=== PATIENT | female | born 1970 | race American Indian/Alaskan Native ===

== ENCOUNTER 2016-10-09 12:55 | Emergency (ER) | payer BC, MEDICARE ==
[2016-10-09 13:10] VITALS: BP 135/87; TEMP 98.6
--- NOTE | 2016-10-09 13:36 | ED PDOC ---
Arrival/HPI - General Chief Complaint: Abnormal Skin Integrity Time Seen by Provider: 10/09/16 13:33 Historian: Patient - History of Present Illness Narrative History of Present Illness (Text): 10/09/16 13:33 45 y/o female, post menopausal, nkda, c/o bilateral itching sore rash x 3 months with no change in soap/clothing/detergent. Pt. admits that she sweats a lot, no fever or chills, no night sweat, no breast pain or swelling, no chest pain or shortness of breath, no other medical or psychological complaints. Past Medical History - Provider Review Nursing Documentation Reviewed: Yes - Infectious Disease Hx of Infectious Diseases: None - Reproductive Menopause: Yes - Endocrine/Metabolic Hx Diabetes Mellitus Type 2: Yes - Psychiatric Hx Bipolar Disorder: Yes Hx Substance Use: No - Surgical History Hx Cholecystectomy: Yes Family/Social History - Physician Review Nursing Documentation Reviewed: Yes Family/Social History: Unknown Family HX Smoking Status: Current Some Days Smoker Hx Alcohol Use: Yes Frequency of alcohol use: Socially Hx Substance Use: No Allergies/Home Meds Allergies/Adverse Reactions: Allergies No Known Allergies Allergy (Verified 10/09/16 13:10) Home Medications: Home Meds Medication Instructions Recorded Confirmed Risperidone [Risperdal Consta] 50 mg IM 10/09/16 Risperidone [Risperdal] 0.25 mg PO DAILY 10/09/16 10/09/16 Review of Systems - Review of Systems Constitutional: absent: Fatigue, Fevers Eyes: absent: Vision Changes ENT: absent: Hearing Changes Respiratory: absent: SOB, Cough Cardiovascular: absent: Chest Pain Gastrointestinal: absent: Abdominal Pain, Nausea, Vomiting Skin: Rash. absent: Pruritis, Skin Lesions, Laceration, Abscess, Ulcer, Cellulitis Neurological: absent: Headache, Dizziness Physical Exam Vital Signs Reviewed: Yes Vital Signs Temp Pulse Resp BP Pulse Ox 10/09/16 13:04 98.6 F 102 H 20 135/87 97 Temperature: Afebrile Blood Pressure: Normal Pulse: Tachycardic Respiratory Rate: Normal Appearance: Positive for: Well-Appearing, Non-Toxic, Comfortable Pain Distress: None Mental Status: Positive for: Alert and Oriented X 3 - Systems Exam Head: Present: Atraumatic, Normocephalic Pupils: Present: PERRL Extroacular Muscles: Present: EOMI Conjunctiva: Present: Normal Mouth: Present: Moist Mucous Membranes Neck: Present: Normal Range of Motion Respiratory/Chest: Present: Clear to Auscultation, Good Air Exchange. No: Respiratory Distress, Accessory Muscle Use Cardiovascular: Present: Regular Rate and Rhythm, Normal S1, S2. No: Murmurs Abdomen: Present: Normal Bowel Sounds. No: Tenderness, Distention, Peritoneal Signs Back: Present: Normal Inspection Upper Extremity: Present: Normal Inspection. No: Cyanosis, Edema Lower Extremity: Present: Normal Inspection. No: Edema Neurological: Present: GCS=15, Speech Normal, Motor Func Grossly Intact, Gait Normal, Memory Normal Skin: Present: Warm, Dry, Rashes (visible bilateral lateral rash visible papule border approx. 4cm noted bilaterally appear to be tinea dermatitis, no cellulitis, no streaking or ulcer, no bullseye or target signs. ), Normal Color Psychiatric: Present: Alert, Oriented x 3, Normal Insight, Normal Concentration Medical Decision Making ED Course and Treatment: 10/09/16 13:35 -Discharge home with lotrisone, zyrtec, keep the skin cool and dry, good hygiene , follow up with your own pmd and manager marketing sales within 2 days, return to the ER for any new or worsening signs or symptoms. - PA / SCHOOL TEACHER / Resident Statement MD/DO has reviewed & agrees with the documentation as recorded. Disposition/Present on Arrival - Present on Arrival Any Indicators Present on Arrival: No History of DVT/PE: No History of Uncontrolled Diabetes: No Urinary Catheter: No History of Decub. Ulcer: No History Surgical Site Infection Following: None - Disposition Have Diagnosis and Disposition been Completed?: Yes Diagnosis: Tinea corporis Disposition: HOME/ ROUTINE Disposition Time: 13:36 Patient Plan: Discharge Condition: GOOD Additional Instructions: -Discharge home with lotrisone, zyrtec, keep the skin cool and dry, good hygiene , follow up with your own pmd and manager marketing sales within 2 days, return to the ER for any new or worsening signs or symptoms. Prescriptions: Cetirizine HCl [Zyrtec] 10 mg PO DAILY PRN #10 capsule PRN Reason: Other Clotrimazole/Betamethasone [Lotrisone] 1 appl EXT BID #60 g Referrals: Jessica Saenz MD [Staff Provider] - Follow up with primary Forms: WORK NOTE
[2016-10-09 13:43] VITALS: PULSE 95; RESP 18; O2SAT 96
== END 2016-10-09 13:45 | disposition home or self-care (01) ==
LOC: ED 12:55
DX: B35.4 Tinea corporis (principal)